=== PATIENT | female | born 1985 | race Two or more races ===

== ENCOUNTER 2023-04-12 23:15 | Emergency (ER) | payer MEDICAID ==
[~2023-04-12] VITALS: Ht 160 cm; Wt 86.2 kg
[2023-04-13] MEDS ORDERED: CARI350T PO (00:51)
[2023-04-13] MEDS ORDERED: IBUP-1957 PO (00:51)
[2023-04-13] MEDS ORDERED: PRED50TA PO (00:51)
[2023-04-13] MEDS ORDERED: CARISOPRODOL 350 MG TABLET ONE (01:01)
[2023-04-13] MEDS ORDERED: dexaMETHasone SOD PHOSPHATE 1 ML ONE (01:01)
[2023-04-13] MEDS: CARISOPRODOL 350 MG TABLET PO ONE (01:11)
[2023-04-13] MEDS: dexaMETHasone SOD PHOSPHATE 4 MG/ML VIAL IM ONE (01:11)
[2023-04-13 02:12] VITALS: BP 119/62; TEMP 97.8; O2SAT 100
== END 2023-04-13 01:20 | disposition home or self-care (01) ==
LOC: ER 23:22
DX: G89.29 Other chronic pain (principal); M54.42 Lumbago with sciatica, left side; M54.41 Lumbago with sciatica, right side; Z88.8 Allergy status to other drugs, medicaments and biological substances
CPT/HCPCS: 99283; 96372; J1100